=== PATIENT | female | born 1960 | race Two or more races ===

== ENCOUNTER 2024-02-23 09:48 | Inpatient (IN) | payer BC ==
[~2024-02-23] VITALS: Ht 160 cm; Wt 70.3 kg
[2024-02-23] MEDS ORDERED: COZAAR100 MG PO (10:18)
--- NOTE | 2024-02-23 10:22 | NUR ---
PTE ALERTA Y ORIENTADA X3 ES ENVIADA POR EL DR. NIELS WILD POR DOLOR ABDOMINAL. SE MIDEN S/V Y S EUBICA.
[2024-02-23] MEDS ORDERED: 0.9 % SODIUM CHLORIDE 1,000 ML IV STA (11:04)
[2024-02-23 11:40] LABS: PH,URINE 5.5 (5.0-8.0); URINE BILIRRUBIN Moderate (NEGATIVE); URINE BLOOD Negative; URINE COLOR Dark Yellow; URINE GLUCOSE Negative (NEGATIVE); URINE LEUKOCYTE Moderate; URINE NITRATE Negative; URINE PROTEIN Trace (NEGATIVE)
--- NOTE | 2024-02-23 11:41 | NUR ---
PTE EVALUADA POR EL EM MARTINEZ QUIEN ORDENA TRATAMIENTO LA CUAL SE EJECUTA SE MANTIENE BAJO OBSERVACION.
[2024-02-23 11:44] LABS: URINE EPITHELIAL CELLS 95.8 uL (0.0-38.8); URINE RBC 11.1 uL (0.0-20.8); URINE WBC 274.2 uL (0.0-23.2)
[2024-02-23 12:02] LABS: HEMATOCRIT 45.4 % (36.0-45.00); HEMOGLOBIN 15.4 g/dL (12.0-15.00); MEAN CELL VOLUME 93.7 fL (80.00-100.00); MEAN CORPUSCULAR HEMOGLOBIN 31.8 pg (27.00-32.0); MEAN CORPUSCULAR HGB CONC 33.9 g/dl (32.0-36.0); PLATELET COUNT 232 K/uL (150-450); RED BLOOD COUNT 4.85 M/uL (4.00-6.00); RED CELL DISTRIBUTION WIDTH 13.4 % (11.5-14.5)
[2024-02-23 12:44] LABS: URINE APPEARANCE SL CLOUDY
[2024-02-23 12:44] LABS: INR 1.08; PARTIAL THROMBOPLASTIN TIME 26.6 SECONDS (22.0-34.0); PROTHROMBIN TIME 11.3 SECONDS (9.0-11.5)
[2024-02-23 12:48] LABS: ALBUMIN 3.9 gm/dL (3.4-5.0); BILIRUBIN TOTAL 1.53 mg/dL (0.3-1.2); BILIRUBIN,CONJUGATED 0.34 mg/dL (0.0-0.2); BILIRUBIN,UNCONJUGATED 1.19 mg/dL (0.0-0.6); CALCIUM 9.6 mg/dL (8.5-10.1); CREATININE SERUM 0.8 mg/dL (0.55-1.02); GFR 72.44; POTASSIUM 4.74 mEq/L (3.5-5.1); TOTAL PROTEIN 7.7 gm/dL (6.4-8.2)
[2024-02-23] MEDS ORDERED: 0.9 % SODIUM CHLORIDE 1,000 ML IV SCH (19:00)
[2024-02-23] MEDS ORDERED: METRONIDAZOLE/SODIUM CHLORIDE 100 ML IV SCH (19:00)
[2024-02-23] MEDS ORDERED: PROMETHAZINE HCL 25 MG/ML AMPUL IM ONE (19:00)
[2024-02-23] MEDS ORDERED: MEPERIDINE HCL/PF 25 MG/ML VIAL IM ONE (19:00)
[2024-02-23] MEDS ORDERED: MEPERIDINE HCL/PF 25 MG/ML VIAL IM PRN (19:15)
[2024-02-23] MEDS ORDERED: ONDANSETRON HCL 4 MG in 0.9 % SODIUM CHLORIDE 50 ML IV PRN (19:15)
[2024-02-23] MEDS ORDERED: ACETAMINOPHEN 500 MG GEL..CAP PO PRN (19:15)
[2024-02-23] MEDS ORDERED: CIPROFLOXACIN IN 5 % DEXTROSE 400 MG/200 ML PIGGYBAG IV ONE (20:15)
[2024-02-23] MEDS ORDERED: METRONIDAZOLE/SODIUM CHLORIDE 500 MG/100 ML PIGGYBACK IV ONE (20:15)
[2024-02-23] MEDS ORDERED: PROMETHAZINE HCL 25 MG/ML AMPUL ONE (20:15)
[2024-02-23 21:00] LABS: INR 1.06; PARTIAL THROMBOPLASTIN TIME 26.4 SECONDS (22.0-34.0); PROTHROMBIN TIME 11.1 SECONDS (9.0-11.5)
[2024-02-23] MEDS ORDERED: CIPROFLOXACIN IN 5 % DEXTROSE 200 ML IV SCH (21:00)
[2024-02-24] MEDS ORDERED: METRONIDAZOLE/SODIUM CHLORIDE 500 MG/100 ML PIGGYBACK IV ONE (03:30)
[2024-02-24] MEDS ORDERED: FAMOTIDINE/PF 20 MG in 0.9 % SODIUM CHLORIDE 8 ML IV PUSH SCH (09:00)
[2024-02-24] MEDS ORDERED: LOSARTAN POTASSIUM 100 MG TABLET PO SCH (09:00)
[2024-02-25 07:07] LABS: HEMATOCRIT 38.4 % (36.0-45.00); HEMOGLOBIN 13.2 g/dL (12.0-15.00); MEAN CELL VOLUME 91.9 fL (80.00-100.00); MEAN CORPUSCULAR HEMOGLOBIN 31.7 pg (27.00-32.0); MEAN CORPUSCULAR HGB CONC 34.5 g/dl (32.0-36.0); PLATELET COUNT 225 K/uL (150-450); RED BLOOD COUNT 4.17 M/uL (4.00-6.00)
[2024-02-25 07:26] LABS: ALBUMIN 3.6 gm/dL (3.4-5.0); BILIRUBIN TOTAL 1.34 mg/dL (0.3-1.2); CALCIUM 9.2 mg/dL (8.5-10.1); CREATININE SERUM 0.56 mg/dL (0.55-1.02); GFR 109.34; GLOBULINA 3.2 G/DL (2.4-3.5); MAGNESIUM 1.8 mg/dL (1.8-2.4); PHOSPHOROUS 2.4 mg/dL (2.5-4.9); POTASSIUM 4.71 mEq/L (3.5-5.1); TOTAL PROTEIN 6.8 gm/dL (6.4-8.2)
[2024-02-25 17:45] LABS: ob POSITIVE (NEGATIVE)
[2024-02-25] MEDS ORDERED: HYOSCYAMINE SULFATE 0.125 MG TAB.SUBL SL SCH (17:47)
== END 2024-02-26 15:12 | disposition home or self-care (01) | DRG 392 ==
LOC: ER 09:49 → SEC-K 19:18 → MEDI 19:18
PROVIDERS: General Practice; Internal Medicine Infectious Disease; ADMIT Internal Medicine; ATTEND Internal Medicine
PROC: BW21YZZ Computerized Tomography (CT Scan) of Abdomen and Pelvis using Other Contrast (ICD-10-PCS; principal; 2024-02-23)
DX: K52.9 Noninfective gastroenteritis and colitis, unspecified (principal); K56.609 Unspecified intestinal obstruction, unspecified as to partial versus complete obstruction